=== PATIENT | female | born 1980 | race Caucasian/White ===

== ENCOUNTER → 2021-11-29 10:05 | Outpatient (BNVA) | payer OTHER, SELFPAY | PROVIDERS: PCP Internal Medicine; Visit Provider Nurse Practitioner Family | DX: Z13.89 Encounter for screening for other disorder (principal) ==

== ENCOUNTER → 2022-01-01 12:57 | Outpatient (BNVA) | payer OTHER, SELFPAY | PROVIDERS: PCP Internal Medicine; Visit Provider Nurse Practitioner Family | DX: Z13.89 Encounter for screening for other disorder (principal) ==

== ENCOUNTER 2022-04-26 08:10 | Outpatient (REF) | payer OTHER, SELFPAY ==
--- NOTE | 2022-04-26 08:17 | EEG_ITS ---
The waking background activity consists of low voltage fast frequency seen diffusely, intermixed with a low voltage, well-defined posterior 10 hertz alpha frequency. Photic stimulation was without activation. Hyperventilation was omitted. No sleep stages were identified. No focal, lateralizing, or paroxysmal discharges are seen. IMPRESSION: This waking EEG is within normal limits. MD ELKIN Feldman/KAREEM / [id number]
== END 2022-04-26 08:11 | disposition home or self-care (01) ==
LOC: HO.NEURO 08:10
PROVIDERS: PCP Internal Medicine; Visit Provider Nurse Practitioner Family
DX: F09 Unspecified mental disorder due to known physiological condition (principal); F41.1 Generalized anxiety disorder; R25.1 Tremor, unspecified
CPT/HCPCS: 95816